=== PATIENT | male | born 1945 | race Caucasian/White ===

== ENCOUNTER 2018-12-16 09:21 | Outpatient (RCR) | payer MEDICARE ==
--- NOTE | 2018-11-22 09:29 | NUR ---
11/19/18 Patient seen by Treatment team. Pt presents clean and neat, alert and oriented x4. Pt is in a pleasant mood. Pt states that he has had some increased anxiety. Pt states Dr Barragan is aware and is giving him trintellix and monitoring him over the next 2 weeks. Pt denies any suicidal thoughts at present time. Pt will continue with IOP 3-4x week. Pt will follow up in one month. Treatment team concluded.
[2018-12-09 13:19] VITALS: BP 155/92
--- NOTE | 2018-12-13 08:01 | NUR ---
12/09/18 1303 Patient in office for monthly vitals. Vitals signs stable and charted. pt and RN discussed pt's pmh of stomach cancer. pt currently takes omeprazole. He states it helps him but that he has alot to cope with and eats limited types of food. Will continue to monitor pt.
[~2018-12-16] VITALS: Ht 165.1 cm; Wt 68.9 kg
[~2018-12-16 09:21] MED LIST: ABILIFY2 MG PO; AMLODIPINE10 MG PO; BUPROPION100 MG PO; CLONAZEPAM1 M1 PO; DEPLIN PO; DONEPEZIL HCL10 M1 PO; LEVOTHYROXIN25 MC1 PO; LOSARTAN POTASS1 TA1 PO; OMEPRAZOLE; OMEPRAZOLE PO; SODI; SODI PO; TRAZODONE50 MG PO; TRINTELLIX20 MG PO; XANAX XR0.5 MG PO; ZYPREXA ZYDI5 MG PO
[2018-12-17] MEDS ORDERED: ABILIFY5 MG PO (13:55)
[2018-12-17] MEDS ORDERED: TRAZODONE HCL100 MG PO (13:57)
[2019-01-17] MEDS ORDERED: CLONAZEP ODT0.5 MG PO (10:50)
== END 2018-12-16 23:59 | disposition still patient (30) ==
LOC: PATHWAYS 09:21
PROVIDERS: ATTEND Specialist
DX: F33.8 Other recurrent depressive disorders (principal); F41.0 Panic disorder [episodic paroxysmal anxiety]; F41.1 Generalized anxiety disorder